=== PATIENT | female | born 1990 | race Caucasian/White ===

== ENCOUNTER → 2024-04-01 07:09 | Outpatient (REF) | payer BC, SELFPAY | LOC: PNTC 07:09 | PROVIDERS: ATTENDING PHYSICIAN Obstetrics & Gynecology | DX: O24.419 Gestational diabetes mellitus in pregnancy, unspecified control (principal) | CPT/HCPCS: 59025; 76815 ==

== ENCOUNTER → 2024-04-06 16:25 | Outpatient (REF) | payer BC, SELFPAY | LOC: PNTC 16:25 | PROVIDERS: ATTENDING PHYSICIAN Obstetrics & Gynecology | DX: O24.419 Gestational diabetes mellitus in pregnancy, unspecified control (principal) | CPT/HCPCS: 59025; 76816; 76818; 76820 ==

== ENCOUNTER → 2024-04-08 14:31 | Outpatient (REF) | payer BC, SELFPAY | LOC: PNTC 14:31 | PROVIDERS: ATTENDING PHYSICIAN Student in an Organized Health Care Education/Training Program | DX: O36.5930 Maternal care for other known or suspected poor fetal growth, third trimester, not applicable or unspecified (principal) | CPT/HCPCS: 59025 ==

== ENCOUNTER → 2024-04-12 11:45 | Outpatient (REF) | payer BC, SELFPAY | LOC: PNTC 11:45 | PROVIDERS: ATTENDING PHYSICIAN Student in an Organized Health Care Education/Training Program | DX: O36.5990 Maternal care for other known or suspected poor fetal growth, unspecified trimester, not applicable or unspecified (principal); O36.8190 Decreased fetal movements, unspecified trimester, not applicable or unspecified | CPT/HCPCS: 59025; 76815; 76820 ==

== ENCOUNTER 2024-04-12 19:24 | Inpatient (IN) | payer BC, SELFPAY ==
[2024-04-12 19:42] VITALS: BP 104/68; BMI 24.3
[2024-04-12 20:07] LABS: Glucose - Point of Care 89 mg/dl (70-99)
[2024-04-12 20:12] LABS: % Basophils 0.2 % (0-2); % Eosinophils 2.3 % (0-6); % Immature Granulocytes 0.5 % (0-0.5); % Lymphocytes 27.1 % (20.5-51.1); % Monocytes 5.3 % (1.7-9.3); % Neutrophils 64.6 % (42.2-75.2); Absolute Eosinophils 0.2 10^3/uL (0-0.7); Absolute Lymphocytes 2.4 10^3/uL (1.2-3.4); Absolute Monocytes 0.5 10^3/uL (0.1-0.6); Absolute Neutrophils 5.7 10^3/uL (1.4-6.5); Hematocrit 31.1 % (37.0-47.0); Hemoglobin 10.5 g/dL (12.0-16.0); Mean Corp Hgb Conc. 33.8 g/dL (33.0-37.0); Mean Corpuscular Hgb 28.8 pg (27.0-31.0); Mean Corpuscular Volume 85.2 fL (81.0-99.0); Nucleated Red Blood Cells % 0 %; Platelet Count 167 10^3/uL (130-400); Red Blood Cell Count 3.65 10^6/uL (4.20-5.40); Red Cell Dist. Width 13.3 % (11.5-14.5); White Blood Cell Count 8.8 10^3/uL (4.8-10.8)
[2024-04-12] MEDS: CYTOTEC 25 MICROGRAM VAG (20:21)
[2024-04-13] MEDS: LR 1000 IV ×2 (01:01→08:59)
[2024-04-13 06:29] LABS: Glucose - Point of Care 73 mg/dl (70-99)
[2024-04-13] MEDS: PRENATAL PLUS 1 TABLET PO (07:58)
[2024-04-13] MEDS: PITOCIN 30 UNITS/NSS 500 ML IV (08:59)
[2024-04-13] MEDS: PENICILLIN 110 UNITS IV (08:59)
[2024-04-13 10:35] LABS: Glucose - Point of Care 79 mg/dl (70-99)
[2024-04-13] MEDS: PENICILLIN 55 UNITS IV ×2 (12:51→16:32)
[2024-04-13] MEDS: STADOL 1 MG IV (15:50)
[2024-04-13 16:35] LABS: Glucose - Point of Care 83 mg/dl (70-99)
[2024-04-13] MEDS: FENTANYL/BUPIVACAINE 100 EPIDURAL (17:20)
[2024-04-13] MEDS: SUBLIMAZE 100 MCG EPIDURAL (17:20)
[2024-04-13] MEDS: ZOFRAN 4 MG IV (22:01)
[2024-04-14 07:04] LABS: Hematocrit 30.8 % (37.0-47.0); Hemoglobin 10.3 g/dL (12.0-16.0)
[2024-04-14] MEDS: SENOKOT-S 1 TABLET PO (09:48)
[2024-04-14] MEDS: MOTRIN 600 MG PO ×2 (09:48→22:00)
[2024-04-14] MEDS: PRENATAL PLUS 1 TABLET PO (09:49)
[2024-04-15] MEDS: PRENATAL PLUS 1 TABLET PO (08:01)
[2024-04-15] MEDS: SENOKOT-S 1 TABLET PO (08:02)
[2024-04-16 12:22] LABS: Syphilis/T. pallidum Ab Reflex Negative (Negative)
== END 2024-04-15 13:23 | disposition home or self-care (01) | DRG 807 ==
LOC: LDRP 19:24
PROVIDERS: Student in an Organized Health Care Education/Training Program; ADMITTING PHYSICIAN Obstetrics & Gynecology
PROC: 3E0P7VZ Introduction of Hormone into Female Reproductive, Via Natural or Artificial Opening (ICD-10-PCS; 2024-04-12)
PROC: 10E0XZZ Delivery of Products of Conception, External Approach (ICD-10-PCS; 2024-04-13)
PROC: 10907ZC Drainage of Amniotic Fluid, Therapeutic from Products of Conception, Via Natural or Artificial Opening (ICD-10-PCS; 2024-04-13)
PROC: 0KQM0ZZ Repair Perineum Muscle, Open Approach (ICD-10-PCS; 2024-04-13)
PROC: 4A1HXCZ Monitoring of Products of Conception, Cardiac Rate, External Approach (ICD-10-PCS; 2024-04-13)
PROC: 3E0234Z Introduction of Serum, Toxoid and Vaccine into Muscle, Percutaneous Approach (ICD-10-PCS; 2024-04-15)
DX: O36.5930 Maternal care for other known or suspected poor fetal growth, third trimester, not applicable or unspecified (principal); Z37.0 Single live birth; O99.824 Streptococcus B carrier state complicating childbirth; O69.81X0 Labor and delivery complicated by cord around neck, without compression, not applicable or unspecified; O70.1 Second degree perineal laceration during delivery; O43.193 Other malformation of placenta, third trimester; O24.420 Gestational diabetes mellitus in childbirth, diet controlled; Z23 Encounter for immunization; Z3A.38 38 weeks gestation of pregnancy
CPT/HCPCS: 88307; 36415; 82962; 85014; 85018; 85025; 86780; 86850; 86900; 86901